=== PATIENT | female | born 1955 | race Caucasian/White ===

== ENCOUNTER 2016-10-27 18:49 | Emergency (ER) | payer OTHER, BC ==
[~2016-10-27] VITALS: Ht 167.6 cm; Wt 84.5 kg
[2016-10-27] MEDS ORDERED: LEVOTHYROXIN88 MC1 PO (19:10)
[2016-10-27] MEDS ORDERED: ULTRAM50 M1 PO (19:37)
[2016-10-27 20:00] VITALS: BP 158/92
== END 2016-10-27 20:00 | disposition home or self-care (01) | DRG 556 ==
LOC: ED 18:49
DX: M79.1 Myalgia (principal); V53.5XXA Driver of pick-up truck or van injured in collision with car, pick-up truck or van in traffic accident, initial encounter

== ENCOUNTER 2017-09-04 15:54 | Emergency (ER) | payer OTHER, BC ==
[~2017-09-04] VITALS: Ht 167.6 cm; Wt 75.0 kg
[~2017-09-04 15:54] MED LIST: LEVOTHYROXIN88 MC1 PO; ULTRAM50 M1 PO
[2017-09-04] MEDS ORDERED: PERCOCET 10/31 COMBO PO (17:48)
[2017-09-04 18:09] VITALS: BP 174/99
== END 2017-09-04 18:13 | disposition home or self-care (01) | DRG 563 ==
LOC: ED 15:54
PROC: 2W3RX1Z Immobilization of Left Lower Leg using Splint (ICD-10-PCS; principal; 2017-09-04)
DX: S82.842A Displaced bimalleolar fracture of left lower leg, initial encounter for closed fracture (principal); S00.81XA Abrasion of other part of head, initial encounter; S50.812A Abrasion of left forearm, initial encounter; S60.512A Abrasion of left hand, initial encounter; V28.4XXA Motorcycle driver injured in noncollision transport accident in traffic accident, initial encounter

== ENCOUNTER 2021-10-28 08:32 | Emergency (ER) | payer MEDICARE ==
[~2021-10-28] VITALS: Ht 165.1 cm; Wt 88.4 kg
[~2021-10-28 08:32] MED LIST changes: +PERCOCET 10/31 COMBO PO
[2021-10-28 08:54] VITALS: BP 153/87
[2021-10-28 09:43] LABS: URINE BILIRUBIN - DIPSTICK NEGATIVE (NEGATIVE); URINE BLOOD DIPSTICK NEGATIVE (NEGATIVE); URINE COLOR YELLOW; URINE GLUCOSE - DIPSTICK NEGATIVE (NEGATIVE); URINE KETONE NEGATIVE (NEGATIVE); URINE LEUK ESTERASE NEGATIVE (NEGATIVE); URINE PROTEIN - DIPSTICK NEGATIVE (NEG-TRACE); URINE SPECIFIC GRAVITY <=1.005; URINE UROBILINOGEN - DIPSTICK 0.2 E.U./dL (0.2)
[2021-10-28 09:44] LABS: HEMATOCRIT 39.3 % (37.0-47.0); IMMATURE GRANULOCYTES 0.1 % (0.0-5.0); MEAN CELL VOLUME 94.9 fL CALC (80.0-100.0); MEAN CORPUSCULAR HGB 31.4 pG CALC (26.0-32.0); MEAN CORPUSCULAR HGB CONC 33.1 g/dL CAL (32.0-36.0); NEUT# 5.59 thou/uL (2.00-7.15); RED BLOOD COUNT 4.14 mill/uL (4.20-5.60); RED CELL DISTRI WIDTH 12.9 % (11.5-15.5)
[2021-10-28 09:55] VITALS: BP 121/79
[2021-10-28 09:58] LABS: URINE NITRITE - DIPSTICK NEGATIVE (Negative)
[2021-10-28 10:01] VITALS: BP 120/80
[2021-10-28 10:01] LABS: ALBUMIN 4.1 g/dL (3.2-5.0); ALKALINE PHOSPHATASE 70 u/l (38-126); ANION GAP 14 (6-22 (CALC)); BILIRUBIN, TOTAL 0.6 mg/dL (0.0-1.4); BUN 13 mg/dL (8-23); BUN/CREATININE RATIO 19 (12-20 (CALC)); CARBON DIOXIDE 26 mmol/l (22-30); CHLORIDE 104 mmol/l (95-108); CREATININE 0.7 mg/dL (0.5-1.0); GFR FOR AFR.AMER. > 60 ML/MIN (>=60 (CALC)); GFR OTHER RACES > 60 ML/MIN (>=60 (CALC)); LIPASE 44 u/l (23-300); POTASSIUM 4.3 mmol/l (3.5-5.1); SGOT/AST 18 u/l (9-36); SODIUM 140 mmol/l (137-146); TOTAL PROTEIN 7.6 g/dL (6.3-8.2)
[2021-10-28 10:31] VITALS: BP 115/63
[2021-10-28] MEDS ORDERED: METRONIDAZOLE500 MG PO (11:54)
[2021-10-28] MEDS ORDERED: ZOFRAN4 MG/TAB PO (11:54)
[2021-10-28] MEDS ORDERED: OMNI-PAC300 MG PO (11:54)
[2021-10-28 12:09] VITALS: BP 115/63
== END 2021-10-28 12:21 | disposition home or self-care (01) ==
LOC: ED 08:32
PROVIDERS: Internal Medicine
DX: K57.92 Diverticulitis of intestine, part unspecified, without perforation or abscess without bleeding (principal); N63.10 Unspecified lump in the right breast, unspecified quadrant; R10.9 Unspecified abdominal pain
CPT/HCPCS: Q9967

== ENCOUNTER 2022-03-15 07:43 | Emergency (ER) | payer MEDICARE ==
[2022-03-15] VITALS (7 sets, daily range): BP systolic 124–154; BP diastolic 76–92
[~2022-03-15] VITALS: Ht 165.1 cm; Wt 84.1 kg
[~2022-03-15 07:43] MED LIST changes: +METRONIDAZOLE500 MG PO; +OMNI-PAC300 MG PO; +ZOFRAN4 MG/TAB PO
[2022-03-15] MEDS ORDERED: SIMVASTATIN10 MG PO (08:23)
== END 2022-03-15 10:01 | disposition home or self-care (01) ==
LOC: ED 07:43
PROC: 2W3CX1Z Immobilization of Right Lower Arm using Splint (ICD-10-PCS; principal; 2022-03-15)
DX: S52.501A Unspecified fracture of the lower end of right radius, initial encounter for closed fracture (principal); S60.021A Contusion of right index finger without damage to nail, initial encounter; W19.XXXA Unspecified fall, initial encounter; Y92.003 Bedroom of unspecified non-institutional (private) residence as the place of occurrence of the external cause

== ENCOUNTER 2023-09-30 08:42 | Observation (INO) | payer MEDICARE ==
[~2023-09-30] VITALS: Ht 165.1 cm; Wt 82.6 kg
[2023-09-30] VITALS (36 sets, daily range): BP systolic 126–175; BP diastolic 74–100
[~2023-09-30 08:42] MED LIST changes: +SIMVASTATIN10 MG PO
--- NOTE | 2023-09-30 08:49 | NUR ---
PATIENT TO ROOM 2 WITH SPOUCE AT HER SIDE
--- NOTE | 2023-09-30 08:50 | NUR ---
PATIENT TO ROOM 3
[2023-09-30 09:48] LABS: BASO% 0.7 % (0-3); EOS% 2.2 % (0-8); HEMATOCRIT 26.4 % (37.0-47.0); HEMOGLOBIN 8.4 g/dl (12.0-16.0); IMMATURE GRANULOCYTES 0.2 % (0.0-5.0); LYMPH% 31.3 % (15-41); MEAN CELL VOLUME 91.3 fL CALC (80.0-100.0); MEAN CORPUSCULAR HGB 29.1 pG CALC (26.0-32.0); MEAN CORPUSCULAR HGB CONC 31.8 g/dL CAL (32.0-36.0); MONO% 11.3 % (2-13); NEUT# 2.25 thou/uL (2.00-7.15); NEUT% 54.3 % (42-76); RED BLOOD COUNT 2.89 mill/uL (4.20-5.60); RED CELL DISTRI WIDTH 14.4 % (11.5-15.5)
[2023-09-30 09:50] LABS: URINE BILIRUBIN - DIPSTICK Negative (NEGATIVE); URINE BLOOD DIPSTICK Negative (NEGATIVE); URINE GLUCOSE - DIPSTICK Negative (NEGATIVE); URINE KETONE Negative (NEGATIVE); URINE LEUK ESTERASE Negative (NEGATIVE); URINE NITRITE - DIPSTICK Negative (Negative); URINE PROTEIN - DIPSTICK Negative (NEG-TRACE); URINE UROBILINOGEN - DIPSTICK 0.2 E.U./dL (0.2)
[2023-09-30 09:51] LABS: URINE COLOR Yellow
[2023-09-30 10:03] LABS: ALBUMIN 4.2 g/dL (3.2-5.0); ALKALINE PHOSPHATASE 58 u/l (38-126); ANION GAP 8 (6-22 (CALC)); BILIRUBIN, TOTAL 0.4 mg/dL (0.02-1.3); BUN 11 mg/dL (8-23); BUN/CREATININE RATIO 15 (12-20 (CALC)); CARBON DIOXIDE 26 mmol/l (22-30); CHLORIDE 110 mmol/l (95-108); CREATININE 0.7 mg/dL (0.5-1.0); ESTIMATED GFR 95 ML/MIN (>=90 (CALC)); POTASSIUM 4.2 mmol/l (3.5-5.1); SGOT/AST 40 u/l (9-36); SODIUM 139 mmol/l (137-146); TOTAL PROTEIN 6.9 g/dL (6.3-8.2)
--- NOTE | 2023-09-30 10:25 | NUR ---
PT SITTING IN BED NO DISTRESS NOTED, FAMILY AT [facility]
--- NOTE | 2023-09-30 11:09 | NUR ---
PT SITTING IN BED NO DISTRES NOTED
[2023-09-30] MEDS ORDERED: Pantoprazole Sodium 40 MG VIAL (Protonix) IV ONE (12:35)
[2023-09-30] MEDS ORDERED: SODIUM CHLORIDE 0.9% 1,000 ML IV PRN (12:55)
[2023-09-30] MEDS ORDERED: MAGNESIUM HYDROXIDE 30 ML UDC PO PRN (12:55)
[2023-09-30] MEDS ORDERED: ACETAMINOPHEN 325 MG/TAB PO PRN (12:55)
--- NOTE | 2023-09-30 12:55 | NUR ---
PT MEDICATED NO COMPLAITS AT THIS TIME
--- NOTE | 2023-09-30 13:20 | NUR ---
PT SITTING IN BED, FAMILY AT BEDSIDE, NO OTHER NEEDS AT THIS TIME
--- NOTE | 2023-09-30 14:35 | NUR ---
PT SITTING IN BED, WAS PROVIDED CLEAR LIQUIDS
--- NOTE | 2023-09-30 15:13 | NUR ---
PT SITTING IN BED, WAITING ON ROOM
--- NOTE | 2023-09-30 16:46 | NUR ---
PT SITTING IN BED NO NEEDS AT THIS TIME, WAITING FOR ROOM
[2023-09-30 18:22] LABS: HEMATOCRIT 27.9 % (37.0-47.0); HEMOGLOBIN 8.6 g/dl (12.0-16.0)
--- NOTE | 2023-09-30 18:22 | NUR ---
PT SITTING IN BED, NO NEEDS AT THIS TIME
[2023-09-30] MEDS ORDERED: Peg 3350-POTASSIUM CHLORIDE-So 4,000 ML BTL PO ONE (19:50)
[2023-09-30] MEDS ORDERED: SENNOSIDES-Docusate Sodium 1 COMBO TAB PO ONE (19:50)
--- NOTE | 2023-09-30 19:55 | NUR ---
REPORT GIVEN TO ANGELNIA
--- NOTE | 2023-09-30 20:05 | NUR ---
PT TRANSPORTED TO [facility] AT THIS TIME BY ADDITIONAL STAFF VIA W/C.
--- NOTE | 2023-09-30 20:10 | NUR ---
RECEIVED PATIENT FROM ED VIA STRETCHER. ALERT AND ORIENTED X4, VSS. ASSESSMENT COMPLETE, DENIES PAIN, NO DISTRESS NOTED. ORIENTED TO ROOM AND INSTRUCTED ON USE OF REMOTE/CONTROLS. BED IN LOW POSITION, LOCKED. CALL LIGHT WITHIN REACH.
[2023-09-30] MEDS ORDERED: Pantoprazole Sodium 40 MG VIAL (Protonix) IV SCH (21:00)
[2023-10-01] VITALS (11 sets, daily range): BP systolic 129–159; BP diastolic 62–92
[2023-10-01 00:24] LABS: HEMATOCRIT 27.2 % (37.0-47.0); HEMOGLOBIN 8.5 g/dl (12.0-16.0)
[2023-10-01 05:37] LABS: HEMATOCRIT 24.3 % (37.0-47.0); HEMOGLOBIN 7.7 g/dl (12.0-16.0)
--- NOTE | 2023-10-01 08:07 | NUR ---
PATIENT LYING IN BED. ASSESSMENT COMPLETED (SEE INTERVENTIONS). ALERT AND ORIENTED X 3. DENIES PAIN. LUNGS CLEAR TO ASCULTATION. BREATHING EVEN AND UNLABORED ON ROOM AIR. VITAL SIGNS STABLE. SAFETY MEASURES IN PLACE INCLUDING BED IN LOW POSITION AND CALL LIGHT RESTING NEXT TO R HAND. NO APPARENT DISTRESS NOTED. WILL CONTINUE WITH PLAN OF CARE. COLONSOCPY SCHEDULED FOR 10AM. PATIENT MADE AWARE.
[2023-10-01] MEDS ORDERED: PROPOFOL 200 MG/20 ML VIAL IV ONE (08:59)
[2023-10-01] MEDS ORDERED: LIDOCAINE HCL 2% 2ML SDV IV ONE (08:59)
[2023-10-01] MEDS ORDERED: GLYCOPYRROLATE 0.2 MG/ML IV ONE (08:59)
[2023-10-01] MEDS ORDERED: SODIUM CHLORIDE 0.9% 500 ML IV ONE ×2 (10:35→12:09)
--- NOTE | 2023-10-01 10:53 | NUR ---
PATIENT TAKEN TO OR FOR COLONOSCOPY/EGD VIA STRETCHER WITH OR STAFF.
[2023-10-01] MEDS ORDERED: EPINEPHrine HCL 1 MG/ML 10 ML ONE (12:36)
[2023-10-01 13:24] LABS: HEMATOCRIT 24.8 % (37.0-47.0); HEMOGLOBIN 7.9 g/dl (12.0-16.0)
--- NOTE | 2023-10-01 13:35 | NUR ---
PATIENT RETURNED TO THE UNIT VIA STRETCHER BY OR STAFF
--- NOTE | 2023-10-01 15:44 | NUR ---
PATIENT LYING IN BED RECEIVING BLOOD TRANSFUSION. DENIES ISSUES OR CONCERNS AT THIS TIME. NO APPARENT DISTRESS NOTED. WILL CONTINUE WITH PLAN OF CARE.
[2023-10-01 17:57] LABS: HEMATOCRIT 31.4 % (37.0-47.0)
--- NOTE | 2023-10-01 20:00 | NUR ---
[facility] PT RESTING IN BED AT THIS TIME. PT DENIES PAIN. PT DOES NOT OFFER ANY COMPLAINTS. ABDOMEN IS SOFT, WITH ACTIVE BOWEL SOUNDS X4 QUADRANTS. PT IS A&O X3. PT STATES THAT SHE HER LAST BM WAS ON 09-27-2023. PT STATES THAT SHE IS PASSING GAS. LUNG SOUNDS CLEAR. PT REMAINS ON ROOM AIR AT THIS TIME, WITH NO S&S OF DISTRESS. PT HAS A #20 IN THE LAC WITH NS @ 100 ML/HR. PT EDUCATED ON POC AND MEDICATION SCHEDULE. CALL LIGHT IN REACH, AND SAFETY PRECAUTIONS IN PLACE.
--- NOTE | 2023-10-01 23:42 | NUR ---
nurse notified of pt pulse rate.
[2023-10-02 00:23] LABS: HEMATOCRIT 28.5 % (37.0-47.0); HEMOGLOBIN 9.2 g/dl (12.0-16.0)
--- NOTE | 2023-10-02 00:30 | NUR ---
LAB IN ROOM AT THIS TIME. UPON ENTRY TO ROOM, THIS CLERICAL CLERK NOTES THAT THE PT IS IN THE BATHROOM. PT ASSISTED BACK TO BED, PT TOLERATED AMBULATING TO BATHROOM AND BACK WELL, WITH NO COMPLAINTS VOICED. SCANT AMOUNT OF LOOSE STOOL PASSED. PT PASSES FLATUS WELL. PT DENIES ANY NEEDS AT THIS TIME. CALL LIGHT IN REACH, AND SAFETY PRECAUTIONS IN PLACE.
[2023-10-02 04:24] VITALS: BP 138/79
--- NOTE | 2023-10-02 04:25 | NUR ---
PT RESTING IN BED WITH EYES CLOSED. RESPIRATIONS EVEN AND UNLABORED, EASILY AROUSABLE. TELE IN PLACE. NO S&S OF DISTRESS NOTED AT THIS TIME. CALL LIGHT IN REACH, AND SAFETY PRECAUTIONS IN PLACE.
[2023-10-02 04:55] VITALS: BP 138/79
[2023-10-02 05:57] LABS: CREATININE 0.7 mg/dL (0.5-1.0); TOTAL PROTEIN 5.6 g/dL (6.3-8.2)
[2023-10-02 06:05] LABS: ALBUMIN 3.3 g/dL (3.2-5.0); BILIRUBIN, TOTAL 0.6 mg/dL (0.02-1.3)
[2023-10-02 06:13] LABS: HEMATOCRIT 28.4 % (37.0-47.0); HEMOGLOBIN 9.3 g/dl (12.0-16.0)
[2023-10-02 06:17] LABS: BASO% 0.4 % (0-3); EOS% 2.4 % (0-8); HEMATOCRIT 28.8 % (37.0-47.0); HEMOGLOBIN 9.4 g/dl (12.0-16.0); IMMATURE GRANULOCYTES 0.2 % (0.0-5.0); LYMPH% 30.8 % (15-41); MEAN CELL VOLUME 91.4 fL CALC (80.0-100.0); MEAN CORPUSCULAR HGB 29.8 pG CALC (26.0-32.0); MEAN CORPUSCULAR HGB CONC 32.6 g/dL CAL (32.0-36.0); MONO% 9.3 % (2-13); NEUT# 2.87 thou/uL (2.00-7.15); NEUT% 56.9 % (42-76); RED BLOOD COUNT 3.15 mill/uL (4.20-5.60); RED CELL DISTRI WIDTH 14.3 % (11.5-15.5)
[2023-10-02 07:10] VITALS: BP 155/74
--- NOTE | 2023-10-02 07:30 | NUR ---
REPORT RECEIVED FROM LICENSED GUIDE NURSE. PATIENT IS A&OX4, ON ROOM AIR, IV FLUIDS RUNNING ORDERED. VW WNL, NSR ON TELE MONITOR. NO S/S OF BLEEDING AT THIS TIME. ALL NEEDS ADDRESSED. CALL LIGHT WITHIN REACH.
[2023-10-02] MEDS ORDERED: PROTONIX40 M2 PO (10:51)
[2023-10-02 11:01] VITALS: BP 127/65
--- NOTE | 2023-10-02 11:55 | NUR ---
Discharge instructions given. Patient verbalizes understanding of same. Discharged in stable condition via Ambulatory to Home with staff. All belongings sent with pt. IV removed, patient taken off tele box and returned to nursing station.
--- NOTE | 2023-10-04 10:55 | NUR ---
Discharge follow up call completed 10/04/23. Pt states she is doing well and resting comfortably at home. Pt has prescribed medication and is taking as directed. Pt has contacted her PCP and is waiting for a return call with an appointment time. No needs or concerns verbalized at this time.
== END 2023-10-02 12:04 | disposition home or self-care (01) ==
LOC: ED 08:42 → ED-I 12:30 → ED 12:55 → MS2 12:56
PROVIDERS: Family Medicine; Nurse Practitioner Family; Surgery; ADMIT Internal Medicine; ATTEND Internal Medicine
PROC: 30233N1 Transfusion of Nonautologous Red Blood Cells into Peripheral Vein, Percutaneous Approach (ICD-10-PCS; principal; 2023-10-01)
PROC: 0DBH8ZX Excision of Cecum, Via Natural or Artificial Opening Endoscopic, Diagnostic (ICD-10-PCS; 2023-10-01)
PROC: 0W3P8ZZ Control Bleeding in Gastrointestinal Tract, Via Natural or Artificial Opening Endoscopic (ICD-10-PCS; 2023-10-01)
PROC: 0DB98ZX Excision of Duodenum, Via Natural or Artificial Opening Endoscopic, Diagnostic (ICD-10-PCS; 2023-10-01)
DX: K55.21 Angiodysplasia of colon with hemorrhage (principal); D62 Acute posthemorrhagic anemia; K64.8 Other hemorrhoids; K29.80 Duodenitis without bleeding; E03.9 Hypothyroidism, unspecified; E83.119 Hemochromatosis, unspecified; Z87.19 Personal history of other diseases of the digestive system; Z20.822 Contact with and (suspected) exposure to COVID-19
CPT/HCPCS: J2470; P9016; Q9967

== ENCOUNTER 2024-03-10 14:03 | Emergency (ER) | payer MEDICARE ==
[~2024-03-10] VITALS: Ht 165.1 cm; Wt 87.0 kg
[~2024-03-10 14:03] MED LIST changes: +ARMOUR THYRO60 MG PO; +ARMOUR THYRO90 MG PO; +PROTONIX40 M2 PO; +SIMVASTATIN40 MG PO
[2024-03-10] MEDS ORDERED: KETOROLAC TROMETHAMINE 30 MG/ML SDV IM ONE (14:45)
[2024-03-10] MEDS ORDERED: ORPHENADRINE CITRATE 30 MG/ML AMP IM ONE (14:45)
[2024-03-10] MEDS ORDERED: METHOCARBAMOL500 MG PO (15:58)
[2024-03-10] MEDS ORDERED: NAPROXEN500 MG PO (15:58)
[2024-03-10 16:19] VITALS: BP 141/81
== END 2024-03-10 16:49 | disposition home or self-care (01) ==
LOC: ED 14:03
DX: S76.011A Strain of muscle, fascia and tendon of right hip, initial encounter (principal); W17.89XA Other fall from one level to another, initial encounter; Y93.A1 Activity, exercise machines primarily for cardiorespiratory conditioning
CPT/HCPCS: J2360